=== PATIENT | female | born 1995 | race Caucasian/White ===

== ENCOUNTER 2017-01-30 08:07 | Emergency (ER) | payer BC ==
[~2017-01-30] VITALS: Ht 154.9 cm; Wt 72.7 kg
[~2017-01-30 08:07] MED LIST: BIRTH CONTROL PILL
[2017-01-30 08:09] VITALS: TEMP 98.5
[2017-01-30] MEDS ORDERED: TRIAMCINOLONE A15 GM TP (08:27)
[2017-01-30 08:54] VITALS: BP 117/82; PULSE 93
== END 2017-01-30 08:54 | disposition home or self-care (01) ==
LOC: COL.ER 08:07
DX: S80.861A Insect bite (nonvenomous), right lower leg, initial encounter (principal); W57.XXXA Bitten or stung by nonvenomous insect and other nonvenomous arthropods, initial encounter